=== PATIENT | male | born 1965 | race Caucasian/White ===

== ENCOUNTER 2017-05-08 09:31 | Emergency (ER) | payer SELFPAY ==
--- NOTE | 2017-05-08 10:26 | UC ---
Psychiatric Complaint HPI - HPI Summary HPI Summary: Patient presents with a past medical history of depression. He takes Lamictal 200 mg twice daily. He recently moved here from [facility] [place] [facility] and is going to be able to be cared for and [facility]. He can be seen but the office said it could be up to 10 days. So he currently has 7 pills left and is asking for just enough until he see his new PCP. He denies any suicidal or homicidal thought. - History Of Current Complaint Chief Complaint: UCMedRefill Stated Complaint: MED REFILL Time Seen by Provider: 05/08/17 10:08 ?: No Aggravating Factor(s): Nothing Alleviating Factor(s): Medication Associated Signs And Symptoms: Negative - Risk Factor(s) Completed Suicide Risk Factors: Negative - Allergies/Home Medications Allergies/Adverse Reactions: Allergies Allergy/AdvReac Type Severity Reaction Status Date / Time No Known Allergies Allergy Verified 05/08/17 09:51 Home Medications: Home Medications Acetaminophen [Tylenol 8 Hour Arthritis] 2 tab PO BID 05/08/17 [History Confirmed 05/08/17] Calcium Polycarbophil [Fiber Tabs] 625 mg PO BID 05/08/17 [History Confirmed ] Lubiprostone 24 MCG CAP (NF) [Amitiza (NF)] 24 mcg PO BID 05/08/17 [History Confirmed 05/08/17] Melatonin 1 mg PO BEDTIME 05/08/17 [History Confirmed 05/08/17] lamoTRIgine TAB(*) [Lamictal TAB(*)] 200 mg PO BID 05/08/17 [History Confirmed 05/08/17] PMH/Surg Hx/FS Hx/Imm Hx Previously Healthy: Yes Psychological History: Depression - Surgical History Surgical History: Yes Surgery Procedure, Year, and Place: hernia repair x 2, varicose repair, left knee replacement, gall bladder, gastric ablasion. - Family History Known Family History: Positive: None - Social History Occupation: Employed Full-time Lives: Alone Alcohol Use: Occasionally Substance Use Type: None Smoking Status (MU): Current Every Day Smoker Review of Systems Constitutional: Negative Skin: Negative Eyes: Negative ENT: Negative Respiratory: Negative Cardiovascular: Negative Gastrointestinal: Negative Genitourinary: Negative Motor: Negative Neurovascular: Negative Musculoskeletal: Negative Neurological: Negative Psychological: Negative Is Patient Immunocompromised?: No All Other Systems Reviewed And Are Negative: Yes Physical Exam Triage Information Reviewed: Yes Appearance: Well-Appearing Vital Signs: Initial Vital Signs Temp 97.9 F 05/08/17 09:44 Pulse 61 05/08/17 09:44 Resp 18 05/08/17 09:44 BP 77/33 05/08/17 09:44 Pulse Ox 98 05/08/17 09:44 Vital Signs Reviewed: Yes Eye Exam: Normal ENT Exam: Normal Neck exam: Normal Neck: Positive: 1 Respiratory Exam: Normal Cardiovascular Exam: Normal Abdominal Exam: Normal Musculoskeletal Exam: Normal Neurological Exam: Normal Psychological Exam: Normal Skin Exam: Normal Psych Complaint Course/Dx - Course Course Of Treatment: Patient presents with a past medical history of depression that is well controlled with LAMICTAL 20 mg bid, he has 7 pills left and is going to be seen within 10 days with his mew PCP, to prevent any laspe in treatment I have prescribed 20 tablets. He was otherwise stable and appropriate for out patient treatment. - Differential Dx/Diagnosis Differential Diagnosis/HQI/PQRI: Depression Provider Diagnoses: depression Discharge - Discharge Plan Condition: Stable Disposition: HOME Prescriptions: lamoTRIgine TAB(*) [LaMICtal TAB(*)] 200 mg PO BID #20 tab Patient Education Materials: Depression (DC) Referrals: No Primary Care Phys,NOPCP [Primary Care Provider] -
== END 2017-05-08 10:18 | disposition home or self-care (01) ==
LOC: UCEAST 09:31
DX: F32.9 Major depressive disorder, single episode, unspecified (principal); F17.210 Nicotine dependence, cigarettes, uncomplicated; Z96.652 Presence of left artificial knee joint
CPT/HCPCS: 99202; G0463

== ENCOUNTER 2017-05-20 17:40 | Emergency (ER) | payer SELFPAY ==
[2017-05-20 20:14] VITALS: BP 106/64
--- NOTE | 2017-05-20 21:01 | UC ---
General HPI - HPI Summary HPI Summary: 52 y/o male w/ PMHX of Depression presents to the urgent care requesting medication refill for Lamotrigine 200mg PO BID. Pt reports he just moved here and has a PCP appt on 05/23/2017. However he was seen here at the Urgent care on 05/08/2017 and was only 20tabs PO. He only has 2 pills left and needs medication until he can see his new PCP. Pt denies suicidal or homicidal ideation, depressed mood, HANSEN, dizziness, SOB, chest pain, N/V/D. - History of Current Complaint Chief Complaint: UCMedRefill Stated Complaint: SCRIPT REFILL Time Seen by Provider: 05/20/17 20:38 Onset/Duration: Gradual Onset, Lasting Days, Still Present Timing: Constant Onset Severity: Mild Current Severity: Mild Pain Intensity: 0 Associated Signs & Symptoms: Positive: Other - medication refill - Allergy/Home Medications Allergies/Adverse Reactions: Allergies Allergy/AdvReac Type Severity Reaction Status Date / Time No Known Allergies Allergy Verified 05/20/17 20:05 PMH/Surg Hx/FS Hx/Imm Hx Previously Healthy: Yes Other GI/ History: IBS Psychological History: Depression, Bipolar Disorder - Surgical History Surgical History: Yes Surgery Procedure, Year, and Place: hernia repair x 2, varicose repair, left knee replacement, gall bladder removal, gastric ablation. - Family History Known Family History: Positive: Cardiac Disease, Hypertension, Diabetes - Social History Occupation: Employed Full-time Lives: With Family Alcohol Use: Occasionally Substance Use Type: None Smoking Status (MU): Current Every Day Smoker Amount Used/How Often: 1/2 PPD Review of Systems Constitutional: Negative Skin: Negative Eyes: Negative ENT: Negative Respiratory: Negative Cardiovascular: Negative Gastrointestinal: Negative Genitourinary: Negative Motor: Negative Neurovascular: Negative Musculoskeletal: Negative Neurological: Negative Psychological: Negative Is Patient Immunocompromised?: No All Other Systems Reviewed And Are Negative: Yes Physical Exam Triage Information Reviewed: Yes Vital Signs: Initial Vital Signs Temp 98.1 F 05/20/17 20:08 Pulse 80 05/20/17 20:08 Resp 16 05/20/17 20:08 BP 106/64 05/20/17 20:08 Pulse Ox 97 05/20/17 20:08 - Additional Comments VITAL SIGNS: Reviewed. GENERAL: Patient is a well developed and nourished male who is lying comfortable in the examining table. Patient is not in any acute respiratory distress or agitation. HEAD AND FACE: Normocephalic and atraumatic. EYES: PERRLA, EOMI x 2, No injected conjunctiva. EARS: Hearing grossly intact. Ear canals and tympanic membranes are WNL. MOUTH: Oropharynx within normal limits. NECK: Supple, trachea is midline, no adenopathy, no JVD. CHEST: Symmetric, no tenderness at palpation LUNGS: Clear to auscultation bilaterally. No wheezing or crackles. CVS: RRR,, S1 and S2 present, no murmurs or gallops appreciated. ABDOMEN: Soft, non-tender. No signs of distention. Positive bowel sounds. No rebound no guarding, and no masses palpated. No abdominal bruit or pulsations. EXTREMITIES: FROM in all major joints, no edema, no cyanosis or clubbing. NEURO: Alert and oriented x 3. No acute neurological deficits. Speech is normal. PSYCH: No Depressed, denies any suicidal thoughts or plan. No homicidal thoughts or plan. No signs of psychosis or pressure speech. No tangential speech. SKIN: Dry and warm Course/Dx - Course Course Of Treatment: 52 y/o male w/ PMHX of depression presents to the urgent care requesting medication refill for Lamotrigine 200mg PO BID. Pt reports he just moved here and has a PCP appt on 05/23/2017. However he was seen here at the Urgent care on 05/08/2017 and was only 20tabs PO. He only has 2 pills left and needs medication until he can see his new PCP. Pt denies suicidal or homicidal ideation, depressed mood, HANSEN, dizziness, SOB, chest pain, N/V/D. Hx obtained. PE:WNL. Dr holloway consulted on Pt's request and he reccomended to Rx few days of medication and f/u w/ PCP. Pt Rx Lamicatal 200mg PO and strongly advised w/ his new PCP on 05/23/2017. Pt understood and agreed w/ plan of care. - Differential Dx - Multi-Symptom Differential Diagnoses: Other - bipolar disorder, depression, Provider Diagnoses: 1- Depression Discharge - Discharge Plan Condition: Stable Disposition: HOME Prescriptions: lamoTRIgine TAB(*) [Lamictal TAB(*)] 200 mg PO BID #20 tab Patient Education Materials: Depression (ED) Referrals: [facility] [Outside] - 3 Days Additional Instructions: 1- Please take medication as directed and f/u your appt w/ your PCP on 2017 for further evaluation and treatment. 2-If you feel depressed w/ suicidal or homicidal ideation please go immediately call 911 or go the ER for further management
== END 2017-05-20 21:19 | disposition home or self-care (01) ==
LOC: UCEAST 17:40
DX: F32.9 Major depressive disorder, single episode, unspecified (principal); Z76.0 Encounter for issue of repeat prescription; K58.9 Irritable bowel syndrome, unspecified; Z96.652 Presence of left artificial knee joint; Z90.49 Acquired absence of other specified parts of digestive tract; F17.210 Nicotine dependence, cigarettes, uncomplicated
CPT/HCPCS: 99212; G0463

== ENCOUNTER 2017-07-20 19:30 | Emergency (ER) | payer SELFPAY ==
--- OUTSIDE RECORDS SUMMARY | 2017-07-20 19:37 | XMS REPORT ---
:1965 External Reference #:[id number] Author Organization [facility] Address [address] [address] Phone [phone] Care Team Providers Name Role Phone Waqar Mcintyre III, MD Primary Care Physician Unavailable Problems Date Description Provider Status Onset: 07/16/2017 Acute upper respiratory infection, Eldon Mackenzie M.D. Active unspecified Social History Type Date Description Comments Marital Status Single Lives With Girlfriend Occupation [id number] ETOH Use Occasionally consumes alcohol Smoking Patient is a current smoker, 1.5 ppd; typically 1 ppd in the smokes every day past. Began age 17 Allergies, Adverse Reactions, Alerts Date Description Reaction Status Severity Comments 05/23/2017 NKDA active 05/23/2017 Bee Sting active Medications Medication Date Status Form Strength Qnty SIG Indications Ordering Provider Azithromycin 07/16/ Active Tablets 250mg 6tabs 2 tab J06.9 Eldon 2017 today and Pachikara, then 1tab M.D. daily Proair HFA 07/16/ Active Aerosol 108(90Base 8.5uni 2 puffs ih J06.9 Eldon 2017 ) mcg/Act ts every 4 Pachikara, hours as M.D. needed Amitiza 00/00/ Active Capsules 24mcg 60caps take one Waqar E. 0000 capsule by Miguelina, mouth M.D. twice a day Tylenol 8 Hour 00/00/ Active Tablets ER 650mg one every Unknown Arthritis Pain 0000 6 hours as needed for pains Melatonin 0000/ Active Capsules 10mg 1 tab by Unknown 0000 mouth at bedtime as needed for insomnia Fiber Complete / Active Tablets twice Unknown 0000 daily Lamictal / Active Tablets 200mg 60tabs 1 by mouth Waqar Harrell 0000 twice a bryan Mcintyre--munira Payne for bi-polar Immunizations CPT Code Status Date Vaccine Lot # [id number] Given 04/09/2012 Tetanus And Diptheria (Td) For Adult Use Preservative Free [id number] Given Unknown Zoster (Zostavax) Vital Signs Date Vital Result Comment 07/16/2017 Weight 152.00 lb Heart Rate 98 /min BP Systolic 118 mmHg BP Diastolic 60 mmHg Body Temperature 97.3 F O2 % BldC Oximetry 97 % 05/23/2017 Height 68.1 inches 5'8.10" Weight 153.38 lb Heart Rate 72 /min BP Systolic Sitting 116 mmHg BP Diastolic Sitting 62 mmHg O2 % BldC Oximetry 97 % BMI (Body Mass Index) 23.2 kg/m2 Results Description No Information Procedures Description No Information Encounters Type Date Location Provider CPT E/M Dx Office Visit 05/23/2017 [facility] Waqar Mcintyre, [id number] M67.472 3:40p - Mayela Payne F31.9 K58.1 Plan of Care Future Appointment(s):07/30/2017 11:00 am - Eldon Mackenzie M.D. at [facility] - [address]08/08/2017 4:20 pm - Eldon Mackenzie M.D. at [facility] - [address]/09/2018 - Eldon Mackenzie M.D.J06.9 Acute upper respiratory infection, unspecifiedNew Medication:Azithromycin 250 mgProair HFA 108(90 Base) mcg/ActComments:Will give Zithromax 250 mg 2 tablet today and then 1 tablet daily for four more days .Mucinex twicedaily. Ventolin as neededTylenol as needed. Force fluids and get extra restIf the symptoms doesn 't improve or if it gets worse to call.Follow up:2 weeks/Dr Mcintyre
[2017-07-20 19:47] VITALS: BP 96/56
== END 2017-07-20 21:10 | disposition left against medical advice (07) ==
LOC: UCEAST 19:30
DX: R10.9 Unspecified abdominal pain (principal); Z53.21 Procedure and treatment not carried out due to patient leaving prior to being seen by health care provider

== ENCOUNTER 2017-09-09 17:31 | Emergency (ER) | payer MEDICAID ==
[2017-09-09 17:41] VITALS: BP 100/62
--- NOTE | 2017-09-09 18:05 | ED ---
Skin Complaint - HPI Summary HPI Summary: 52-year-old male with no contributory past medical history presents with 2 months of rash on the medial aspect of his left foot. He has had this in the past was treated with a cream. He has no idea what the diagnosis was or what the cream may have been. He notes that the rash is intensely itchy and performs clear blisters which he sometimes ruptures. They begin as hard spots. It more commonly affects the soles of his foot, and now is more on the side. He has no other complaints. He is on no medication but is a smoker. - History of Current Complaint Chief Complaint: UCSkin Time Seen by Provider: 09/09/17 17:50 Stated Complaint: RASH Hx Obtained From: Patient Pain Intensity: 4 - Allergy/Home Medications Allergies/Adverse Reactions: Allergies Allergy/AdvReac Type Severity Reaction Status Date / Time bee venom protein (honey bee) Allergy Severe Swelling Verified 09/09/17 17:41 Home Medications: Home Medications EPINEPHrine [Epipen] PRN 09/09/17 [History] PMH/Surg Hx/FS Hx/Imm Hx Previously Healthy: Yes Endocrine/Hematology History: Denies: Hx Diabetes, Hx Thyroid Disease Cardiovascular History: Denies: Hx Hypertension Respiratory History: Denies: Hx Chronic Obstructive Pulmonary Disease (COPD) - Surgical History Surgery Procedure, Year, and Place: hernia repair x 2, varicose repair, left knee replacement, gall bladder removal, gastric ablation. Infectious Disease History: No Infectious Disease History: Reports: Hx Shingles Denies: Hx Hepatitis, Hx Human Immunodeficiency Virus (HIV), Traveled Outside the [place] in Last 30 Days - Family History Known Family History: Positive: None, Cardiac Disease, Hypertension, Diabetes - Social History Alcohol Use: None Substance Use Type: Reports: None Hx Tobacco Use: Yes Smoking Status (MU): Current Every Day Smoker Type: Cigarettes Amount Used/How Often: 1/2 PPD Review of Systems Negative: Fever Negative: Arthralgia, Myalgia, Decreased ROM, Edema Positive: Rash. Negative: Bruising All Other Systems Reviewed And Are Negative: Yes Physical Exam Triage Information Reviewed: Yes Vital Signs On Initial Exam: Initial Vitals Temp Pulse Resp BP Pulse Ox 98.2 F 75 16 100/62 100 09/09/17 17:36 09/09/17 17:36 09/09/17 17:36 09/09/17 17:36 09/09/17 17:36 Vital Signs Reviewed: Yes Appearance: Positive: Well-Appearing, No Pain Distress Skin: Positive: Warm, Dry, Other - There is an eruption on the medial surface of the left foot approaching the sole. There is a small firm apparently rising papule more proximally and areas of skin breakdown and almost vesicular looking lesions more distally. There is also areas that look like they have healed and appear as hyperemic or purpuric spots in the skin. All these are maybe 1-2 mm at the largest. Respiratory/Lung Sounds: Positive: Clear to Auscultation Cardiovascular: Positive: RRR Musculoskeletal: Positive: Normal, Strength/ROM Intact Neurological: Positive: Normal, Sensory/Motor Intact Diagnostics - Vital Signs Vital Signs Temp Pulse Resp BP Pulse Ox 09/09/17 17:36 98.2 F 75 16 100/62 100 - Laboratory Lab Statement: Any lab studies that have been ordered have been reviewed, and results considered in the medical decision making process. Course/Dx - Course Course Of Treatment: History of classic eruption of dyshidrotic eczema. I will treat this topically with Lidex cream. Follow-up primary care physician. - Diagnoses Provider Diagnoses: Eczema, dyshidrotic Discharge - Sign-Out/Discharge Documenting (check all that apply): Discharge/Admit/Transfer - Discharge Plan Condition: Good Disposition: HOME Prescriptions: Fluocinonide 0.05% CM (NF) [Lidex 0.05% CREAM (NF)] 1 applic TOPICAL TID PRN #1 tube PRN Reason: foot rash Patient Education Materials: Dyshidrotic Eczema (ED) Referrals: Eldon Mackenzie MD [Primary Care Provider] - Additional Instructions: Keep feet clean and dry. Return if worse, new symptoms or other concerns. Diagnosis is dyshidrotic eczema. - Billing Disposition and Condition Condition: GOOD Disposition: HOME
== END 2017-09-09 18:05 | disposition home or self-care (01) ==
LOC: UCEAST 17:31
DX: L30.1 Dyshidrosis [pompholyx] (principal); Z96.652 Presence of left artificial knee joint; Z91.030 Bee allergy status; F17.210 Nicotine dependence, cigarettes, uncomplicated
CPT/HCPCS: 99212; G0463

== ENCOUNTER 2017-09-18 18:04 | Emergency (ER) | payer MEDICAID ==
--- NOTE | 2017-09-18 18:09 | UC ---
Skin Complaint HPI - HPI Summary HPI Summary: 52 yo male presents with rash on hands for the last 2 days. He tells me that he was recently moving a lot of furniture and supplies into his storage locker - wonders if that caused his rash. Also has spots on his left foot that seem to be getting worse - was seen for this about 10 days ago and told it was eczema and prescribed lidex but is not improving. Pt says these spots will blister every other day and he pops them with his pocket knife. Denies fever/chills - History of Current Complaint Time Seen by Provider: 09/18/17 18:08 Stated Complaint: RASH Hx Obtained From: Patient Onset/Duration: Sudden Onset Timing: Constant - Allergy/Home Medications Allergies/Adverse Reactions: Allergies Allergy/AdvReac Type Severity Reaction Status Date / Time bee venom protein (honey bee) Allergy Severe Swelling Verified 09/18/17 18:16 Review of Systems Constitutional: Negative Skin: Rash Respiratory: Negative Cardiovascular: Negative Neurovascular: Negative Neurological: Negative Psychological: Negative All Other Systems Reviewed And Are Negative: Yes PMH/Surg Hx/FS Hx/Imm Hx - Additional Past Medical History Additional PMH: Bipolar IBS - Surgical History Surgical History: Yes Surgery Procedure, Year, and Place: hernia repair x 2, varicose repair, left knee replacement, gall bladder removal, gastric ablation. - Family History Known Family History: Positive: None, Cardiac Disease, Hypertension, Diabetes - Social History Occupation: Employed Full-time Lives: With Family Alcohol Use: None Substance Use Type: None Smoking Status (MU): Current Every Day Smoker Type: Cigarettes Amount Used/How Often: 1/2 PPD Physical Exam - Summary Physical Exam Summary: GENERAL: NAD. WDWN. No pain distress. SKIN: B/L hands with dry cracked skin. No streaking, bleeding, or drainage. Left medial foot: wart/blister like lesion in clusters with scant yellow drainage. NECK: Supple. Nontender. No lymphadenopathy. CHEST: No accessory muscle use. Breathing comfortably and in no distress. CV: RRR. Without m/r/g. NEURO: Alert. CN II-XII grossly intact. PSYCH: Age appropriate behavior. Triage Information Reviewed: Yes Vital Signs: Vital Signs: Temp Pulse Resp BP Pulse Ox 99.1 F 88 20 102/59 98 09/18/17 18:12 09/18/17 18:12 09/18/17 18:12 09/18/17 18:12 09/18/17 18:12 Course/Dx - Course Course Of Treatment: Eczema hands. Suspect wart vs herpetic asher, but this would be unusual on the foot - therefore I will refer him to dermatology for further evaluation - Diagnoses Provider Diagnoses: Eczema Discharge - Sign-Out/Discharge Documenting (check all that apply): Discharge/Admit/Transfer - Discharge Plan Condition: Stable Disposition: HOME Prescriptions: Triamcinolone 0.1% CREAM(NF) [Kenalog Cream 0.1%(NF)] 1 applic TOPICAL BID #1 tube Patient Education Materials: Eczema (ED) Referrals: Eldon Mackenzie MD [Primary Care Provider] - Fritz Hernandez MD [Medical Doctor] - As Soon As Possible Additional Instructions: If you develop a fever, shortness of breath, chest pain, new or worsening symptoms - please call your PCP or go to the ED. 1) Please call Dermatology at the number below to schedule a follow up appointment regarding the rash on your foot - Billing Disposition and Condition Condition: STABLE Disposition: Home
[2017-09-18 18:16] VITALS: BP 102/59
== END 2017-09-18 18:50 | disposition home or self-care (01) ==
LOC: UCEAST 18:04
DX: L30.9 Dermatitis, unspecified (principal); K58.9 Irritable bowel syndrome, unspecified; F31.9 Bipolar disorder, unspecified; Z91.030 Bee allergy status; Z96.652 Presence of left artificial knee joint; F17.210 Nicotine dependence, cigarettes, uncomplicated; Z82.49 Family history of ischemic heart disease and other diseases of the circulatory system; Z83.3 Family history of diabetes mellitus
CPT/HCPCS: 99212; G0463

== ENCOUNTER 2017-12-10 15:26 | Emergency (ER) | payer MEDICAID, OTHER ==
[2017-12-10] MEDS ORDERED: NS 0.9% 1000 ML* 1,000 ML IV ONE (15:44)
--- NOTE | 2017-12-10 16:04 | UC ---
Laceration HPI - HPI Summary HPI Summary: Patient complains of laceration to left wrist after hitting it with a power drill. Denies loss of sensation or function. Bleeding controlled. No anti- coag. Tetanus status up-to-date. - History Of Current Complaint Chief Complaint: UCLaceration Stated Complaint: DRILL INJURY TO WRIST Time Seen by Provider: 12/10/17 15:44 Hx Obtained From: Patient Laceration Location: Wrist Mechanism Of Injury: Sharp Trauma Severity: Severe Pain Intensity: 8 Pain Scale Used: 0-10 Numeric Aggravating Factors: Nothing - Allergies/Home Medications Allergies/Adverse Reactions: Allergies Allergy/AdvReac Type Severity Reaction Status Date / Time bee venom protein (honey bee) Allergy Severe Swelling Verified 12/10/17 15:36 Home Medications: Home Medications Melatonin 1 mg PO BEDTIME 12/10/17 [History Confirmed 12/10/17] PMH/Surg Hx/FS Hx/Imm Hx Previously Healthy: Yes - Surgical History Surgical History: Yes Surgery Procedure, Year, and Place: hernia repair x 2, varicose repair, left knee replacement, gall bladder removal, gastric ablation. - Family History Known Family History: Positive: None, Cardiac Disease, Hypertension, Diabetes - Social History Alcohol Use: Occasionally Substance Use Type: None Smoking Status (MU): Light Every Day Tobacco Smoker Type: Cigarettes Amount Used/How Often: 1/2 PPD - Immunization History Most Recent Tetanus Shot: states less than 5 years Review of Systems Constitutional: Negative Skin: Other Eyes: Negative ENT: Negative Respiratory: Negative Cardiovascular: Negative Gastrointestinal: Negative Genitourinary: Negative Motor: Negative Neurovascular: Negative Musculoskeletal: Negative Neurological: Negative Psychological: Negative Is Patient Immunocompromised?: No All Other Systems Reviewed And Are Negative: Yes Physical Exam Triage Information Reviewed: Yes Appearance: Well-Appearing Vital Signs: Initial Vital Signs Temp 97.4 F 12/10/17 15:27 Pulse 66 12/10/17 15:27 Resp 16 12/10/17 15:27 BP 86/54 12/10/17 15:27 Pulse Ox 98 12/10/17 15:27 Vital Signs Reviewed: Yes Eye Exam: Normal Neck exam: Normal Respiratory Exam: Normal Cardiovascular Exam: Normal Abdominal Exam: Normal Musculoskeletal Exam: Normal Neurological Exam: Normal Psychological Exam: Normal Skin Exam: Other Laceration Repair - Laceration Repair 1 Procedure Summary: left volar wrist Description: Linear Laceration Size After Repair: Length (cm) - 3cmx 0.25cm Modified For Repair: No Cleansing Completed Via Routine Prep: Yes Irrigation With Pressure Irrigation Device: Yes Closure Material: Skin Adhesive, SteriStrips Closure Method: Single Layer Laceration Course/Dx - Course/Dx Course Of Treatment: Patient complains of laceration to left wrist after hitting it with a power drill. Denies loss of sensation or function. Bleeding controlled. No anti-coag. Tetanus status up-to-date. Patient initial blood pressure 88/56. Patient was given 1 L of fluids and ambulated after. Patient denies any dizziness or lightheadedness with ambulation. Post fluids-SBP 103/ 59. Patient has no history of hypertension, likely a vaso-vagal reaction to wound. Wound closed with Dermabond and Steri-Strips. Keflex 500 mg started here in . Rx for same. - Differential Dx - Laceration/Wound Provider Diagnoses: laceration Discharge - Sign-Out/Discharge Documenting (check all that apply): Patient Departure All imaging exams completed and their final reports reviewed: No Studies - Discharge Plan Condition: Stable Disposition: HOME Prescriptions: Cephalexin CAP* [Keflex CAP*] 500 mg PO TID 5 Days #15 cap Patient Education Materials: Laceration (ED), Skin Adhesive Care (ED) Referrals: Waqar Mcintyre MD [Primary Care Provider] - Additional Instructions: Leave steristrips until they fall off. Keep wound protected while healing. Take antibiotics as directed. Return for any new or worsening symptoms. - Billing Disposition and Condition Condition: STABLE Disposition: Home - Attestation Statements Provider Attestation: Per institutional requirements, I have reviewed the chart, however, I was not consulted specifically or made aware of this patient by the midlevel provider. I did not personally evaluate, interact with , or disposition this patient.
[2017-12-10] MEDS ORDERED: Cephalexin CAP* 500 MG PO ONE ×3 (16:45→17:04)
[2017-12-10 16:56] VITALS: BP 103/59
== END 2017-12-10 17:20 | disposition home or self-care (01) ==
LOC: UCEAST 15:26
DX: S61.512A Laceration without foreign body of left wrist, initial encounter (principal); W29.8XXA Contact with other powered hand tools and household machinery, initial encounter; Y93.9 Activity, unspecified; Y92.9 Unspecified place or not applicable; Z91.030 Bee allergy status; Z96.652 Presence of left artificial knee joint; F17.210 Nicotine dependence, cigarettes, uncomplicated
CPT/HCPCS: 12002; 96360; 99212; A9270-GY; G0463

== ENCOUNTER 2017-12-17 17:14 | Emergency (ER) | payer OTHER, MEDICAID ==
[2017-12-17 17:23] VITALS: BP 118/76
--- NOTE | 2017-12-17 17:31 | UC ---
HPI Wound/Suture Re-check - HPI Summary HPI Summary: This pt is a 52 y/o male presenting to [facility] c/o wound recheck on left wrist s/p injury on 12/08/17. Pt reports he sustained a laceration to left wrist after hitting it with a power drill on 12/08. He came to Urgent Care on 12/10 and had a laceration repair with steri strips and skin adhesives (Dermabond). Pt was also placed on Keflex and has one more dose left. Today he presents with drainage, pain and redness on left wrist. He states he has had yellow drainage from his wound. Denies red streaks, fever, chills, loss of sensation, loss of left motor function. states pt has been rinsing his wound with peroxide since 2 days ago, as well as placing triple antibiotic on wound. - History Of Current Complaint Stated Complaint: WOUND RECHECK Hx Obtained From: Patient Onset/Duration: Lasting Days, Still Present Severity: Moderate Pain Intensity: 4 Pain Scale Used: 0-10 Numeric Procedure Type: laceration repair with steri strips and skin adhesives - Allergies/Home Medications Allergies/Adverse Reactions: Allergies Allergy/AdvReac Type Severity Reaction Status Date / Time bee venom protein (honey bee) Allergy Severe Swelling Verified 12/17/17 17:23 PMH/Surg Hx/FS Hx/Imm Hx Other Endocrine History: DENIES: diabetes Other Cardiovascular History: DENIES: HTN Psychological History: Bipolar Disorder - Surgical History Surgical History: Yes Surgery Procedure, Year, and Place: hernia repair x 2, varicose repair, left knee replacement, gall bladder removal, gastric ablation. - Family History Known Family History: Positive: Cardiac Disease, Hypertension, Diabetes - Social History Alcohol Use: Occasionally Substance Use Type: Prescribed Smoking Status (MU): Light Every Day Tobacco Smoker Type: Cigarettes Amount Used/How Often: 1/2 PPD - Immunization History Most Recent Tetanus Shot: states less than 5 years Review of Systems Constitutional: Negative Skin: Other - redness on left wrist, drainage from left wrist Eyes: Negative ENT: Negative Respiratory: Negative Cardiovascular: Negative Gastrointestinal: Negative Genitourinary: Negative Motor: Negative Neurovascular: Negative Musculoskeletal: Negative Neurological: Negative Psychological: Negative All Other Systems Reviewed And Are Negative: Yes Physical Exam - Summary Physical Exam Summary: General: well-appearing, no pain distress Skin: warm, dry. LUE: 2 cm partial thickness laceration on left wrist with surrounding erythema. No drainage. No streaking. Left wrist with full ROM and normal strength. Head: normal Eyes: EOMI, SHERIN ENT: normal Neck: supple, nontender Respiratory: CTA, breath sounds present Cardiovascular: RRR Abdomen: soft, nontender Bowel: present Musculoskeletal: normal, strength/ROM intact Neurological: normal, sensory/motor intact, A&O x3 Psychological: affect/mood appropriate Triage Information Reviewed: Yes Vital Signs: Initial Vital Signs Temp 98.6 F 12/17/17 17:20 Pulse 66 12/17/17 17:20 Resp 12 12/17/17 17:20 BP 118/76 12/17/17 17:20 Pulse Ox 100 12/17/17 17:20 Vital Signs Reviewed: Yes Course/Dx - Course Course Of Treatment: Medications reviewed. WRIST FROM AND FULL STRENGTH. THE WOUND HAS SOME ERYTHEMA. NO DRAINAGE ON MY EXAM. THE PATIENT REPORTS A CLEAR YELLOW DRAINAGE. NO SREAKING. THE WOUND HAS BEEN CLEANED WITH HYDROGEN PEROXIDE RECENTLY AND TRIPLE ANTIBIOTIC OINTMENT USED. I CHANGED THE ABX TO CLINDAMYCIN AND RECOMMENDED NO MORE HYDROGEN PEROXIDE AND TO SWITCH TOPICAL ABX TO MUPIROCIN. F/U WITH ORTHOPEDICS. - Differential Dx - Laceration/Wound Provider Diagnoses: LEFT WRIST LACERATION Discharge - Sign-Out/Discharge Documenting (check all that apply): Patient Departure - Discharge All imaging exams completed and their final reports reviewed: No Studies - Discharge Plan Condition: Stable Disposition: HOME Prescriptions: Clindamycin Cap(NF) [Clindamycin Cap 300 mg Cap(NF)] 300 mg PO Q6H #40 cap Mupirocin 1 applic TOPICAL BID #22 gm Patient Education Materials: Laceration (ED) Referrals: Joce Sterling MD [Medical Doctor] - Waqar Mcintyre MD [Primary Care Provider] - Additional Instructions: FOLLOW UP WITH ORTHOPEDICS. GET RECHECKED FOR ANY WORSENING OF YOUR CONDITION OR QUESTIONS OR CONCERNS. - Billing Disposition and Condition Condition: STABLE Disposition: Home - Attestation Statements Document Initiated by Scribe: Yes Documenting Scribe: Hannah Garcia Provider For Whom Scribe is Documenting (Include Credential): Oscar Breaux MD Scribe Attestation: Hannah Hernandez, scribed for Oscar Breaux MD on 12/17/17 at 1756. Scribe Documentation Reviewed: Yes Provider Attestation: The documentation as recorded by the scribe, Hannha Garcia accurately reflects the service I personally performed and the decisions made by me, Oscar Breaux MD
== END 2017-12-17 17:53 | disposition home or self-care (01) ==
LOC: UCEAST 17:14
DX: S61.512D Laceration without foreign body of left wrist, subsequent encounter (principal); W29.8XXD Contact with other powered hand tools and household machinery, subsequent encounter; Z91.030 Bee allergy status; Z96.652 Presence of left artificial knee joint; F17.210 Nicotine dependence, cigarettes, uncomplicated
CPT/HCPCS: 99212; G0463

== ENCOUNTER 2017-12-25 18:57 | Emergency (ER) | payer OTHER, MEDICAID ==
[2017-12-25 19:06] VITALS: BP 101/62
--- NOTE | 2017-12-25 19:19 | UC ---
Skin Complaint HPI - HPI Summary HPI Summary: ABRASION RIGHT 2ND AND 3NR FINGER X 1 DAY CONCERN ABOUT INFECTION NO FEVER, NO CHILLS, - History of Current Complaint Chief Complaint: UCLaceration Time Seen by Provider: 12/25/17 19:10 Stated Complaint: FINGER LACERATION Hx Obtained From: Patient Onset/Duration: Sudden Onset, Lasting Days - 1, Still Present Timing: Constant Onset Severity: Mild Current Severity: Mild Pain Intensity: 5 Location: Hand (Right) - 2ND AND 3RD FINGER Character: Swelling, Redness, Painful Aggravating Factor(s): Touch Alleviating Factor(s): Nothing Associated Signs & Symptoms: Positive: Tenderness. Negative: Fever, Chills - Allergy/Home Medications Allergies/Adverse Reactions: Allergies Allergy/AdvReac Type Severity Reaction Status Date / Time bee venom protein (honey bee) Allergy Severe Swelling Verified 12/25/17 19:06 Review of Systems Constitutional: Negative Eyes: Negative ENT: Negative Respiratory: Negative Cardiovascular: Negative Is Patient Immunocompromised?: No All Other Systems Reviewed And Are Negative: Yes PMH/Surg Hx/FS Hx/Imm Hx Psychological History: Bipolar Disorder - Surgical History Surgical History: Yes Surgery Procedure, Year, and Place: hernia repair x 2, varicose repair, left knee replacement, gall bladder removal, gastric ablation. - Family History Known Family History: Positive: Cardiac Disease, Hypertension, Diabetes - Social History Alcohol Use: Occasionally Substance Use Type: Prescribed Smoking Status (MU): Light Every Day Tobacco Smoker Type: Cigarettes Amount Used/How Often: 1/2 PPD - Immunization History Most Recent Tetanus Shot: states less than 5 years Physical Exam Triage Information Reviewed: Yes Appearance: Well-Appearing, No Pain Distress, Well-Nourished Vital Signs: Initial Vital Signs Temp 97.9 F 12/25/17 19:02 Pulse 74 12/25/17 19:02 Resp 18 12/25/17 19:02 BP 101/62 12/25/17 19:02 Pulse Ox 100 12/25/17 19:02 Vital Signs Reviewed: Yes Eyes: Positive: Conjunctiva Clear ENT: Positive: Normal ENT inspection, Hearing grossly normal, Pharynx normal Neck exam: Normal Neck: Positive: Supple, Nontender Respiratory: Positive: Chest non-tender, Lungs clear, Normal breath sounds Cardiovascular: Positive: RRR, No Murmur, Pulses Normal Skin: Positive: Other - RIGHT HAND 2ND AND 3RD FINGER: + ABRASION , MILD SWELLING, MILD ERYTHEMA Course/Dx - Diagnoses Provider Diagnoses: ABRASION FINGER Discharge - Sign-Out/Discharge Documenting (check all that apply): Patient Departure All imaging exams completed and their final reports reviewed: No Studies - Discharge Plan Condition: Stable Disposition: HOME Prescriptions: Amoxicillin/Clavulanate TAB* [Augmentin TAB 875*] 875 mg PO BID #14 tab Patient Education Materials: Abrasion (ED) Referrals: Waqar Mcintyre MD [Primary Care Provider] - If Needed - Billing Disposition and Condition Condition: STABLE Disposition: Home
== END 2017-12-25 19:30 | disposition home or self-care (01) ==
LOC: UCEAST 18:57
DX: S60.410A Abrasion of right index finger, initial encounter (principal); S60.412A Abrasion of right middle finger, initial encounter; X58.XXXA Exposure to other specified factors, initial encounter; Y93.9 Activity, unspecified; Y92.9 Unspecified place or not applicable; Z91.030 Bee allergy status; F17.210 Nicotine dependence, cigarettes, uncomplicated
CPT/HCPCS: 99212; G0463

== ENCOUNTER 2018-01-03 16:35 | Emergency (ER) | payer OTHER ==
[2018-01-03 17:18] VITALS: BP 102/59
--- NOTE | 2018-01-03 18:37 | UC ---
Head Injury HPI - HPI Summary HPI Summary: The patient is a 52-year-old male that comes here for evaluation of a facial injury. Injury occurred mid afternoon at work today. Patient was tightening a ratchet strap when a coworker move the strap. The strap was under a lot of tension and the hook part of the strap hit him in the right cheek. He has pain over his right zygoma. He did not have any bleeding. He has not had any relief with ibuprofen. He declines any ice or other analgesics here. He has no headache nausea vomiting chest pain or shortness of breath. Denies any neck pain - History Of Current Complaint Chief Complaint: UCTrauma Stated Complaint: FACE INJURY Time Seen by Provider: 01/03/18 18:23 Hx Obtained From: Patient Onset/Duration: Sudden Onset, Lasting Hours Severity Currently: Severe Severity Initially: Severe Pain Intensity: 9 Pain Scale Used: 0-10 Numeric Character: Sharp, Dull, Throbbing Aggravating Factor(s): Nothing Alleviating Factor(s): Nothing Associated Signs And Symptoms: Negative: LOC (Time In Secs./Mins/Hrs), LOC Duration Unknown, Confusion, Memory Loss, Seizure, Epistaxis, Dental Malocclusion, Neck Pain, Nausea, Vomiting Head: 1 - pain/tenderness - Allergies/Home Medications Allergies/Adverse Reactions: Allergies Allergy/AdvReac Type Severity Reaction Status Date / Time bee venom protein (honey bee) Allergy Severe Swelling Verified 01/03/18 17:18 Home Medications: Home Medications Ibuprofen TAB* [Advil TAB*] 600 mg PO ONCE PRN 01/03/18 [History Confirmed 01/03] PMH/Surg Hx/FS Hx/Imm Hx Previously Healthy: Yes Psychological History: Bipolar Disorder - Surgical History Surgical History: Yes Surgery Procedure, Year, and Place: hernia repair x 2, varicose repair, left knee replacement, gall bladder removal, gastric ablation. - Family History Known Family History: Positive: Cardiac Disease, Hypertension, Diabetes - Social History Alcohol Use: Occasionally Substance Use Type: None Smoking Status (MU): Current Every Day Smoker Type: Cigarettes Amount Used/How Often: 1/2 PPD - Immunization History Most Recent Tetanus Shot: states less than 5 years Review of Systems Constitutional: Negative Skin: Negative Eyes: Negative ENT: Negative Respiratory: Negative Cardiovascular: Negative Gastrointestinal: Negative Genitourinary: Negative Motor: Negative Neurovascular: Negative Musculoskeletal: Negative Neurological: Negative Psychological: Negative Is Patient Immunocompromised?: No All Other Systems Reviewed And Are Negative: Yes Physical Exam Triage Information Reviewed: Yes Appearance: Well-Appearing, No Pain Distress, Well-Nourished, Thin Vital Signs: Initial Vital Signs Temp 98.7 F 01/03/18 17:14 Pulse 68 01/03/18 17:14 Resp 16 01/03/18 17:14 BP 102/59 01/03/18 17:14 Pulse Ox 98 01/03/18 17:14 Vital Signs Reviewed: Yes Eyes: Positive: Conjunctiva Clear ENT: Positive: Hearing grossly normal, Uvula midline. Negative: Nasal congestion, Nasal drainage, Tonsillar swelling, Tonsillar exudate, Hoarse voice , Sinus tenderness Dental: Negative: Dental Fracture @ Neck: Positive: Supple, Nontender, No Lymphadenopathy Respiratory: Positive: Lungs clear, Normal breath sounds, No respiratory distress, No accessory muscle use Cardiovascular: Positive: RRR, No Murmur Musculoskeletal: Positive: ROM Intact, No Edema Neurological: Positive: Alert Psychological Exam: Normal Skin Exam: Normal Diagnostics - Radiology No standard instances Xray Interpretation: No Acute Changes - No acute posttraumatic findings. Specifically, no zygomatic arch fractur Radiology Interpretation Completed By: Radiologist Head Injury Course/Dx - Differential Dx/Diagnosis Provider Diagnoses: RIGHT FACIAL CONTUSION Discharge - Sign-Out/Discharge Documenting (check all that apply): Patient Departure All imaging exams completed and their final reports reviewed: Yes - Discharge Plan Condition: Stable Disposition: HOME Patient Education Materials: Contusion in Adults (ED) Referrals: Rodney Montenegro MD [Medical Doctor] - 4 Days Additional Instructions: ICE MOTRIN SEE DR MONTENEGRO FOR REEVALUATION ESPECIALLY IF NOT BETTER IN 4 DAYS - Billing Disposition and Condition Condition: STABLE Disposition: Home
--- NOTE | 2018-01-03 19:42 | RAD ---
EXAM: CT Maxillofacial Without Intravenous Contrast CLINICAL HISTORY: 52 years old, male; Injury or trauma; Injury Pt was hit in right zygomatic arch with metal part of a ratchet strap today; Initial encounter; Blunt trauma (contusions or hematomas); Cheek bone; Injury date: 01/03/18; Additional info: Trauma right zygoma TECHNIQUE: Axial computed tomography images of the face without intravenous contrast. All CT scans at this facility use at least one of these dose optimization techniques: automated exposure control; mA and/or kV adjustment per patient size (includes targeted exams where dose is matched to clinical indication); or iterative reconstruction. Coronal and sagittal reformatted images were created and reviewed. COMPARISON: No relevant prior studies available. FINDINGS: Bones/joints: No acute fracture. Soft tissues: Unremarkable. Orbits: Unremarkable. Sinuses: Chronic left maxillary sinus disease. No air-fluid levels. Other findings: Disc space narrowing at the C5-6 level noted incidentally. IMPRESSION: 1. No acute posttraumatic findings. Specifically, no zygomatic arch fracture.
== END 2018-01-03 19:00 | disposition home or self-care (01) ==
LOC: UCEAST 16:35
DX: S00.83XA Contusion of other part of head, initial encounter (principal); W22.8XXA Striking against or struck by other objects, initial encounter; Y93.89 Activity, other specified; Y92.9 Unspecified place or not applicable; Y99.0 Civilian activity done for income or pay; Z96.652 Presence of left artificial knee joint; Z91.030 Bee allergy status; F17.210 Nicotine dependence, cigarettes, uncomplicated
CPT/HCPCS: 70486; 99211; G0463

== ENCOUNTER 2018-02-22 10:20 | Emergency (ER) | payer OTHER, MEDICAID ==
--- OUTSIDE RECORDS SUMMARY | 2018-02-22 10:25 | XMS REPORT ---
:1965 External Reference #:[id number] Author Organization [employer] Address [address] [place] [address] [place] [address] Phone [phone] Care Team Providers Name Role Phone Waqar Mcintyre III, MD Primary Care Physician Unavailable Payers Type Date Identification Numbers Payment Provider Subscriber Health Maintenance Policy Number: [facility] Health Ins Gumaro Miles [facility] (O) [id number] Ppo/Epo PayID: [id number] [address] [place] [address] Medigap Part B Policy Number: [id number] Medicaid Gumaro Miles Group Name: 1 1 [address] PayID: [id number] [place] [address] Problems Date Description Provider Status Onset: 02/01/2018 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 Active Onset: 07/16/2017 Acute upper respiratory infection, Eldon Mackenzie M.D. 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 Began age 17 Allergies, Adverse Reactions, Alerts Date Description Reaction Status Severity Comments 05/23/2017 NKDA active 05/23/2017 Bee Sting active Medications Medication Date Status Form Strength Qnty SIG Indications Ordering Provider Suprep Bowel 01/21/ Active Solution 17.5-3.13 1unit take Peter T. Prep Kit 2018 -1.6GM/17 s according to Buzz 7ML your MD physician's instructions the day before your procedure. split the dose as directed. Epipen 2-Boo 12/05/ Active Solution 0.3mg/0.3 2unit use as Waqar E. 2017 Auto-Injec ML s directed betty Mcintyre M.D. Amitiza / Active Capsules 24mcg 60cap take one Waqar E. 0000 s capsule by Miguelina, mouth twice a M.D. day Melatonin / Active Capsules 10mg 1 tab by Unknown 0000 mouth at bedtime as needed for insomnia Fiber Complete / Active Tablets twice daily Unknown 0000 Lamictal / Active Tablets 200mg 60tab 1 by mouth Waqar E. 0000 s twice a Miguelina, day--taken M.D. for bi-polar Azithromycin 07/16/ Hx Tablets 250mg 6tabs 2 tab today J06.9 [place] 2018 - and then 1tab Pachikara 01/21/ daily , M.D. 2018 Proair HFA 07/16/ Hx Aerosol 108(90Bas 8.5un 2 puffs ih J06.9 [place] 2017 - e) its every 4 hours Pachikara 01/21/ mcg/Act as needed , M.D. 2018 Tylenol 8 Hour / Hx Tablets ER 650mg one every 6 Unknown Arthritis Pain 0000 - hours as 01/21/ needed for 2018 pains Immunizations CPT Code Status Date Vaccine Lot # [id number] Given 01/21/2018 Pneumonia Vaccine [id number] Given 01/21/2018 Influenza Virus Vaccine, Quadrivalent, Split, [id number] Preservative Free 92796 Given 04/09/2012 Tetanus And Diptheria (Td) For Adult Use Preservative Free 96260 Given Unknown Zoster (Zostavax) Vital Signs Date Vital Result Comment 02/01/2018 Height 68.1 inches 5'8.10" Weight 164.25 lb Heart Rate 78 /min Respiratory Rate 18 /min Pain Level 5 BMI (Body Mass Index) 24.9 kg/m2 01/21/2018 Height 68.1 inches 5'8.10" Weight 160.50 lb Heart Rate 78 /min BP Systolic Sitting 118 mmHg BP Diastolic Sitting 68 mmHg O2 % BldC Oximetry 98 % BMI (Body Mass Index) 24.3 kg/m2 07/16/2017 Weight 152.00 lb Heart Rate 98 [...] Location Provider CPT E/M Dx Office Visit 01/21/2018 [facility] Waqar Mcintyre, 65651 M25.562 9:00a - Mayela Payne Z23 Z12.11 Office Visit 12/03/2017 4:20p [facility] [place] [address] B35.3 Office Visit 10/04/2017 3:30p [facility] [address] B35.3 Carey B35.2 Office Visit 07/16/2017 2:40p [facility] Eldon Mackenzie, 37825 J06.9 Medicine - Pretty Cutler M.D. Office Visit 05/23/2017 3:40p [facility] Waqar Mcintyre, 96033 M67.472 Medicine - Mayela Payne F31.9 K58.1 Plan of Care Future Appointment(s):02/11/2018 8:45 am - Vicente Gerber MD at [facility] Pvcbcshbmvlspdbk76/26/2018 - Kirstin Randolph M.D.M25.562 Pain in left kneeNew Therapy:Physical TherapyFollow up:Follow up: 4 fkjgyX81.652 Presence of left artificial knee viooiN39.023A Instability of internal left knee prosthesis, init alsnqsJ40.462 Effusion, left knee
[2018-02-22 10:32] VITALS: BP 110/89
--- NOTE | 2018-02-22 10:50 | UC ---
Respiratory Complaint HPI - HPI Summary HPI Summary: 2 days of cough, congestion, runny nose. Chest feels tight. Patient is a smoker and states he gets bronchitis frequently. Denies fever, nausea/ vomiting. No sore throat or ear pain. - History of Current Complaint Chief Complaint: UCRespiratory Stated Complaint: COUGH, CONGESTION Time Seen by Provider: 02/22/18 10:36 Hx Obtained From: Patient Onset/Duration: Gradual Onset, Lasting Days, Still Present Timing: Constant Severity Initially: Moderate Severity Currently: Moderate Pain Intensity: 3 Pain Scale Used: 0-10 Numeric Character: Cough: Nonproductive Aggravating Factors: Nothing Alleviating Factors: Nothing Associated Signs And Symptoms: Positive: Wheezing, URI, Nasal Congestion. Negative: Fever, Chills - Allergies/Home Medications Allergies/Adverse Reactions: Allergies Allergy/AdvReac Type Severity Reaction Status Date / Time bee venom protein (honey bee) Allergy Severe Swelling Verified 02/22/18 10:32 PMH/Surg Hx/FS Hx/Imm Hx Previously Healthy: Yes - Surgical History Surgical History: Yes Surgery Procedure, Year, and Place: hernia repair x 2, varicose repair, left knee replacement, gall bladder removal, gastric ablation. - Family History Known Family History: Positive: Cardiac Disease, Hypertension, Diabetes - Social History Alcohol Use: Occasionally Substance Use Type: None Smoking Status (MU): Current Every Day Smoker Type: Cigarettes Amount Used/How Often: 1/2 PPD - Immunization History Most Recent Tetanus Shot: states less than 5 years Review of Systems All Other Systems Reviewed And Are Negative: Yes Constitutional: Positive: Negative ENT: Positive: Nasal Discharge Respiratory: Positive: Cough Cardiovascular: Positive: Negative Gastrointestinal: Positive: Negative Neurological: Positive: Negative Physical Exam Triage Information Reviewed: Yes Appearance: Well-Appearing, No Pain Distress, Well-Nourished Vital Signs: Initial Vital Signs Temp 98.8 F 02/22/18 10:27 Pulse 84 02/22/18 10:27 Resp 18 02/22/18 10:27 BP 110/89 02/22/18 10:27 Pulse Ox 96 02/22/18 10:27 Vital Signs Reviewed: Yes Eyes: Positive: Conjunctiva Clear ENT: Positive: Hearing grossly normal, Pharynx normal, TMs normal Neck: Positive: Supple, Nontender, No Lymphadenopathy Respiratory: Positive: No respiratory distress, No accessory muscle use, Decreased breath sounds. Negative: Wheezing Cardiovascular Exam: Normal Abdomen Description: Positive: Soft Musculoskeletal: Positive: No Edema Neurological: Positive: Alert Psychological: Positive: Age Appropriate Behavior Skin: Negative: Rashes UC Diagnostic Evaluation - Laboratory O2 Sat by Pulse Oximetry: 96 Respiratory Course/Dx - Differential Dx/Diagnosis Provider Diagnoses: ACUTE URI Discharge - Sign-Out/Discharge Documenting (check all that apply): Patient Departure All imaging exams completed and their final reports reviewed: No Studies - Discharge Plan Condition: Stable Disposition: HOME Prescriptions: Albuterol HFA INHALER* [Ventolin HFA Inhaler*] 2 puff INH Q4H PRN #1 mdi PRN Reason: Shortness Of Breath Azithromycin 500 mg PO DAILY #5 tab predniSONE TAB* [Deltasone 20 MG TAB*] 40 mg PO DAILY #10 tab Patient Education Materials: Upper Respiratory Infection (ED) Forms: *Work Release Referrals: Waqar Mcintyre MD [Primary Care Provider] - If Needed Additional Instructions: YOUR SYMPTOMS MAY BE VIRALLY MEDIATED BUT GIVEN YOUR SMOKING HISTORY WE WILL COVER YOU WITH ANTIBIOTICS. IF YOU START THE MEDICINE BE SURE TO TAKE IT FOR THE FULL COURSE. REST, HYDRATE, OTC MEDS NEEDED. WILL ALSO TREAT WITH PREDNISONE AND ALBUTEROL TO HELP WITH AIRWAY INFLAMMATION. SEEK FOLLOW-UP WITH YOUR PCP IF YOU ARE NOT IMPROVING OVER THE NEXT 1-2 WEEKS. - Billing Disposition and Condition Condition: STABLE Disposition: Home
== END 2018-02-22 10:57 | disposition home or self-care (01) ==
LOC: UCEAST 10:20
DX: J06.9 Acute upper respiratory infection, unspecified (principal); F17.210 Nicotine dependence, cigarettes, uncomplicated; Z91.030 Bee allergy status
CPT/HCPCS: 99212; G0463

== ENCOUNTER 2018-03-24 15:23 | Emergency (ER) | payer OTHER, MEDICAID ==
--- OUTSIDE RECORDS SUMMARY | 2018-03-24 15:29 | XMS REPORT | Continuity of Care Document ---
:1965 External Reference #:[id number] Author Name Alexsandra Smith Care Team Providers Name Role Phone Waqar Mcintyre III, MD Primary Care Physician Unavailable Payers Type Date Identification Numbers Payment Provider Subscriber Policy Number: [id number] [facility] Health Ins Ppo/Epo Gumaro Miles PayID: [id number] [address] [place] [address] Policy Number: [id number] Medicaid Gumaro Miles Group Name: 1 1 [address] PayID: [id number] [place] [address] Advance Directives Description No Information Available Problems Date Description Provider Status Onset: 02/01/2018 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 Active Onset: 07/16/2017 Acute upper respiratory infection, Eldon Mackenzie M.D. Active unspecified Family History Date Family Member(s) Problem(s) Comments Father due to Lung Cancer () - age 49 Mother Hypertension Social History Type Date Description Comments Sex Unknown Marital Status Single Lives With Girlfriend Occupation [id number] ETOH Use Occasionally consumes alcohol Tobacco Use Start: Unknown Patient is a current 1.5 ppd; typically 1 ppd smoker, smokes every day in the past. Began age 17 Smoking Status Reviewed: 03/05/18 Patient is a current 1.5 ppd; typically 1 ppd smoker, smokes every day in the past. Began age 17 Allergies, Adverse Reactions, Alerts Date Description Reaction Status Severity Comments 05/23/2017 NKDA Active 05/23/2017 Bee Sting Active Medications Medication Date Status Form Strength Qnty SIG Indications Ordering Provider Suprep Bowel 10/15/ Active Solution 17.5-3.13 1unit take Vicente Ponce Prep Kit 2018 -1.6GM/17 s according to FABIOLA Gerber your MD physician's instructions the day before [...] Aerosol 108(90Bas 8.5un 2 puffs ih J06.9 Eldon 2017 - e) its every 4 hours Pachikara 01/21/ mcg/Act as needed , M.D. 2018 Tylenol 8 Hour / Hx Tablets ER 650mg one every 6 Unknown Arthritis Pain 0000 - hours as 01/21/ needed for 2018 pains Immunizations CPT Code Status Date Vaccine Lot # [id number] Given 01/21/2018 Pneumonia Vaccine [id number] Given 01/21/2018 Influenza Virus Vaccine, Quadrivalent, Split, [id number] Preservative Free [id number] Given 04/09/2012 Tetanus And Diptheria (Td) For Adult Use Preservative Free [id number] Given Unknown Zoster (Zostavax) Vital Signs Date Vital Result Comment 03/05/2018 3:38pm Height 68.1 inches 5'8.10" Weight 163.00 lb Heart Rate 74 /min BP Systolic Sitting 92 mmHg BP Diastolic Sitting 60 mmHg Body Temperature 98.3 F O2 % BldC Oximetry 93 % BMI (Body Mass Index) 24.7 kg/m2 02/01/2018 2:11pm Height 68.1 inches 5'8.10" Weight 164.25 lb Heart Rate 78 /min Respiratory Rate 18 /min Pain Level 5 BMI (Body Mass Index) 24.9 kg/m2 01/21/2018 8:54am Height 68.1 inches 5'8.10" Weight 160.50 lb Heart Rate 78 /min BP Systolic Sitting 118 mmHg BP Diastolic Sitting 68 mmHg O2 % BldC Oximetry 98 % BMI (Body Mass Index) 24.3 kg/m2 07/16/2017 2:40pm Weight 152.00 lb Heart Rate 98 /min BP Systolic 118 mmHg BP Diastolic 60 mmHg Body Temperature 97.3 F O2 % BldC Oximetry 97 % 05/23/2017 3:50pm Height 68.1 inches 5'8.10" Weight 153.38 lb Heart Rate 72 /min BP Systolic Sitting 116 mmHg BP Diastolic Sitting 62 mmHg O2 % BldC Oximetry 97 % BMI (Body Mass Index) 23.2 kg/m2 Results Description No Information Available Procedures Description No Information Available Encounters Type Date Location Provider Dx Diagnosis Office Visit 02/01/2018 Orthopedic Kirstin Randolph, M25.562 Pain in left knee 2:00p [facility] Z96.652 Presence of left artificial knee joint 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 knee [place] Z23 Encounter for immunization Z12.11 Encounter for screening for malignant neoplasm of colon Office Visit 12/03/2017 4:20p [facility] Fritz Hernandez MD B35.3 Tinea pedis Office Visit 10/04/2017 3:30p [facility] AT Fritz Hernandez MD B35.3 Tinea pedis [place] B35.2 Tinea manuum Office Visit 07/16/2017 [facility] Internal [place] J06.9 Acute upper 2:40p Jarrod Mackenzie M.D. respiratory [address] infection, unspecified Office Visit 05/23/2017 [facility] Internal Waqar Harrell M67.472 Ganglion, left 3:40p Jarrod Mcintyre M.D. ankle and foot [place] F31.9 Bipolar disorder, unspecified K58.1 Irritable bowel syndrome with constipation Plan of Treatment 03/05/2018 - Waqar Mcintyre M.D.J20.9 Acute bronchitis, unspecifiedComments: Ongoing cough, wheezing sx. Likely viral; continue Albuterol inhaler 4 times a day and as needed. Smoking cessation again pciwqulP25.8 Other nonspecific abnormal finding of lung fieldComments:[facility] chest [facility] with ? small bilateral nodules. Repeat scan advised in 1 year per pt. Will review records when available. No other lung findings reported
[2018-03-24 15:30] VITALS: BP 104/54
--- NOTE | 2018-03-24 15:52 | UC ---
Shoulder Pain HPI - HPI Summary HPI Summary: Patient has had right anterior shoulder pain for the past 6+ months. No discrete injury or trauma. States it is becoming progressively worse recently. He is having trouble sleeping due to the discomfort. Has some limitation in his range of motion. - History of Current Complaint Chief Complaint: UCUpperExtremity Stated Complaint: R SHOULDER PAIN Time Seen by Provider: 03/24/18 15:39 Hx Obtained From: Patient Onset/Duration: Gradual Onset, Still Present Timing: Constant Severity Initially: Mild Severity Currently: Moderate Location Of Pain: Is Discrete @ - RIGHT ANTERIOR SHOULDER Pain Intensity: 8 Pain Scale Used: 0-10 Numeric Character: Sharp, Aching Aggravating Factor(s): Movement, Internal Rotation Alleviating Factor(s): Rest Associated Signs And Symptoms: Positive: Negative Related History: Dominant Hand Right - Allergies/Home Medications Allergies/Adverse Reactions: Allergies Allergy/AdvReac Type Severity Reaction Status Date / Time bee venom protein (honey bee) Allergy Severe Swelling Verified 03/24/18 15:30 PMH/Surg Hx/FS Hx/Imm Hx Other GI/ History: CHRONIC CONSTIPATION Psychological History: Depression - Surgical History Surgical History: Yes Surgery Procedure, Year, and Place: hernia repair x 2, varicose repair, left knee replacement, gall bladder removal, gastric ablation. - Family History Known Family History: Positive: Cardiac Disease, Hypertension, Diabetes - Social History Alcohol Use: Occasionally Substance Use Type: None Smoking Status (MU): Light Every Day Tobacco Smoker Type: Cigarettes Amount Used/How Often: 1/2 PPD - Immunization History Most Recent Tetanus Shot: states less than 5 years Review of Systems All Other Systems Reviewed And Are Negative: Yes Constitutional: Positive: Negative Skin: Positive: Negative Respiratory: Positive: Negative Cardiovascular: Positive: Negative Gastrointestinal: Positive: Negative Musculoskeletal: Positive: Arthralgia, Decreased ROM Physical Exam Triage Information Reviewed: Yes Appearance: Well-Appearing, No Pain Distress, Well-Nourished Vital Signs: Initial Vital Signs Temp 98.7 F 03/24/18 15:27 Pulse 71 03/24/18 15:27 Resp 18 03/24/18 15:27 BP 104/54 03/24/18 15:27 Pulse Ox 100 03/24/18 15:27 Vital Signs Reviewed: Yes Eyes: Positive: Conjunctiva Clear ENT: Positive: Hearing grossly normal Neck: Positive: Supple Respiratory: Positive: No respiratory distress, No accessory muscle use Cardiovascular: Positive: Pulses Normal Abdomen Description: Positive: Soft Musculoskeletal: Positive: ROM Intact - SLIGHTLY LIMITED RIGHT SHOULDER INTERNAL ROTATION, No Edema, Other: - TTP RIGHT ANTERIOR SHOULDER. POSITIVE EMPTY CAN, POSITIVE SPEEDS. NEG CROSS ARM, NEG REID. Neurological: Positive: Alert Psychological: Positive: Age Appropriate Behavior Skin: Negative: Rashes Diagnostics - Radiology RIGHT SHOULDER XRAY Radiology Interpretation Completed By: Radiologist Summary of Radiographic Findings: mild osteoarthritis of the right AC joint Shoulder Course/Dx - Course Assessment/Plan: PATIENT WITH ANTERIOR RIGHT SHOULDER PAIN. POSSIBLE RIGHT BICEPS TENDINOPATHY. X-RAY SHOWS MILD OSTEOARTHRITIS OF THE RIGHT AC JOINT BUT NO OTHER ACUTE PATHOLOGY. HAVE PROVIDED A SLING FOR COMFORT. ADVISED PT. FOLLOW-UP WITH ORTHOPEDICS. - Differential Dx/Diagnosis Provider Diagnosis: Pain in right shoulder Discharge - Sign-Out/Discharge Documenting (check all that apply): Patient Departure All imaging exams completed and their final reports reviewed: Yes - Discharge Plan Condition: Stable Disposition: HOME Patient Education Materials: Tendinitis (ED), Shoulder Pain (ED) Referrals: Kirill Carrillo MD [Medical Doctor] - 2 Weeks Waqar Mcintyre MD [Primary Care Provider] - If Needed Additional Instructions: SHOULDER X-RAY TODAY SHOWS MILD OSTEOARTHRITIS OF THE RIGHT AC JOINT BUT NO OTHER ACUTE INJURY. WEAR THE SLING NEEDED FOR COMFORT. CALL ORTHOPEDICS TOMORROW MORNING FOR A FOLLOW-UP APPOINTMENT. YOU MAY BENEFIT FROM AN MRI. PHYSICAL THERAPY REFERRAL ALSO PROVIDED FOR YOU TO USE IF DESIRED. REST. OTC IBUPROFEN NEEDED FOR DISCOMFORT. - Billing Disposition and Condition Condition: STABLE Disposition: Home
== END 2018-03-24 16:45 | disposition home or self-care (01) ==
LOC: UCEAST 15:23
DX: M25.511 Pain in right shoulder (principal); F17.210 Nicotine dependence, cigarettes, uncomplicated
CPT/HCPCS: 99213; G0463

== ENCOUNTER 2018-06-17 12:10 | Emergency (ER) | payer BC, OTHER ==
[2018-06-17 14:09] VITALS: BP 100/58
--- NOTE | 2018-06-17 14:16 | UC ---
Shoulder Pain HPI - HPI Summary HPI Summary: Patient was walking in the parking lot at work when he slipped on ice this morning and fell onto his left hip - History of Current Complaint Chief Complaint: UCUpperExtremity Stated Complaint: WC - RIGHT SIDE PAIN Time Seen by Provider: 06/17/18 14:15 Pain Intensity: 7 - Allergies/Home Medications Allergies/Adverse Reactions: Allergies Allergy/AdvReac Type Severity Reaction Status Date / Time bee venom protein (honey bee) Allergy Severe Swelling Verified 06/17/18 14:04 PMH/Surg Hx/FS Hx/Imm Hx - Surgical History Surgical History: Yes Surgery Procedure, Year, and Place: hernia repair x 2, varicose repair, left knee replacement, gall bladder removal, gastric ablation. - Family History Known Family History: Positive: Cardiac Disease, Hypertension, Diabetes - Social History Alcohol Use: Occasionally Substance Use Type: None Smoking Status (MU): Light Every Day Tobacco Smoker Type: Cigarettes Amount Used/How Often: 1/2 PPD Have You Smoked in the Last Year: Yes - Immunization History Most Recent Tetanus Shot: states less than 5 years Physical Exam Vital Signs: Initial Vital Signs Temp 97.7 F 06/17/18 14:05 Pulse 57 06/17/18 14:05 Resp 16 06/17/18 14:05 BP 100/58 06/17/18 14:05 Pulse Ox 100 06/17/18 14:05 Shoulder Course/Dx - Course Course Of Treatment: Comfortable here, ambulated to x-ray without difficulty. - Differential Dx/Diagnosis Differential Diagnosis/HQI/PQRI: Contusion Provider Diagnosis: Contusion of hip, right Discharge - Sign-Out/Discharge Documenting (check all that apply): Patient Departure All imaging exams completed and their final reports reviewed: Yes - Discharge Plan Condition: Good Disposition: HOME Patient Education Materials: Hip Contusion (ED) Referrals: Waqar Mcintyre MD [Primary Care Provider] - Additional Instructions: Apply ice to the sore areas, avoid movements that cause pain. Definite follow- up with the orthopedist if no improvement in 3 or 4 days. He may take Tylenol every 4 hours and Motrin every 6 or 8 hours for pain. - Billing Disposition and Condition Condition: GOOD Disposition: Home
[2018-06-17] MEDS ORDERED: Acetaminophen TAB* 325 MG PO ONE (14:20)
--- NOTE | 2018-06-17 15:01 | UC ---
Hip/Pelvis Pain - HPI Summary HPI Summary: Patient slipped on the ice and fell this morning in his parking lot at work, injuring his right hip. He had minor right shoulder soreness because he thinks he grabbed onto something but he did not fall on his right shoulder. Denies any neck pain and did not hit his head. - History Of Current Complaint Chief Complaint: UCUpperExtremity Stated Complaint: WC - RIGHT SIDE PAIN Time Seen by Provider: 06/17/18 14:15 Hx Obtained From: Patient Onset/Duration: Sudden Onset Severity Initially: Mild Severity Currently: None Pain Intensity: 7 Location: Diffuse Character Of Pain: Aching Aggravating Factor(s): Movement Alleviating Factor(s): Rest Associated Signs And Symptoms: Positive: Negative - Patient denies hitting his head, denies any neck pain. States his right shoulder was mildly sore but is no longer painful from where he caught himself from falling. - Allergies/Home Medications Allergies/Adverse Reactions: Allergies Allergy/AdvReac Type Severity Reaction Status Date / Time bee venom protein (honey bee) Allergy Severe Swelling Verified 06/17/18 14:04 PMH/Surg Hx/FS Hx/Imm Hx Previously Healthy: Yes - Surgical History Surgical History: Yes Surgery Procedure, Year, and Place: hernia repair x 2, varicose repair, left knee replacement, gall bladder removal, gastric ablation. - Family History Known Family History: Positive: Cardiac Disease, Hypertension, Diabetes - Social History Occupation: Employed Full-time Lives: With Family Alcohol Use: Occasionally Substance Use Type: None Smoking Status (MU): Light Every Day Tobacco Smoker Type: Cigarettes Amount Used/How Often: 1/2 PPD Have You Smoked in the Last Year: Yes - Immunization History Most Recent Tetanus Shot: states less than 5 years Review of Systems All Other Systems Reviewed And Are Negative: Yes Constitutional: Positive: Negative Skin: Positive: Negative Eyes: Positive: Negative ENT: Positive: Negative Respiratory: Positive: Negative Cardiovascular: Positive: Negative Gastrointestinal: Positive: Negative Genitourinary: Positive: Negative Motor: Positive: Other - Mild right hip pain with palpation but not with movement. Neurovascular: Positive: Negative - Denies any numbness or tingling to extremities. Musculoskeletal: Positive: Negative Neurological: Positive: Negative Psychological: Positive: Negative Is Patient Immunocompromised?: No Physical Exam Triage Information Reviewed: Yes Appearance: Well-Appearing, No Pain Distress, Well-Nourished Vital Signs: Initial Vital Signs Temp 97.7 F 06/17/18 14:05 Pulse 57 06/17/18 14:05 Resp 16 06/17/18 14:05 BP 100/58 06/17/18 14:05 Pulse Ox 100 06/17/18 14:05 Vital Signs Reviewed: Yes Eye Exam: Normal Neck exam: Normal Neck: Positive: Supple, Nontender, No Lymphadenopathy - C-spine nontender Respiratory: Positive: Chest non-tender, Lungs clear, Normal breath sounds, No respiratory distress, No accessory muscle use Cardiovascular Exam: Normal Abdominal Exam: Normal Bowel Sounds: Positive: Present Musculoskeletal Exam: Normal Musculoskeletal: Positive: Strength Intact, ROM Intact - Denies pain with range of motion however has mild right hip pain on firm palpation Neurological Exam: Normal Neurological: Positive: Alert, Muscle Tone Normal Psychological Exam: Normal Skin Exam: Normal Hip Injury Course/Dx - Course Course Of Treatment: Comfortable here, ambulated to x-ray without difficulty. X -ray right hip and pelvis negative - Differential Dx/Diagnosis Provider Diagnosis: Contusion of hip, right Discharge - Sign-Out/Discharge Documenting (check all that apply): Patient Departure All imaging exams completed and their final reports reviewed: Yes - Discharge Plan Condition: Good Disposition: HOME Patient Education Materials: Hip Contusion (ED) Referrals: Waqar Mcintyre MD [Primary Care Provider] - Additional Instructions: Apply ice to the sore areas, avoid movements that cause pain. Definite follow- up with the orthopedist if no improvement in 3 or 4 days. He may take Tylenol every 4 hours and Motrin every 6 or 8 hours for pain. - Billing Disposition and Condition Condition: GOOD Disposition: Home - Attestation Statements Provider Attestation: Per institutional requirements, I have reviewed the chart, however, I was not consulted specifically or made aware of this patient by the midlevel provider. I did not personally evaluate, interact with , or disposition this patient.
== END 2018-06-17 15:04 | disposition home or self-care (01) ==
LOC: UCCORT 12:10
DX: S70.01XA Contusion of right hip, initial encounter (principal); R29.898 Other symptoms and signs involving the musculoskeletal system; F17.210 Nicotine dependence, cigarettes, uncomplicated; Z91.030 Bee allergy status; W00.9XXA Unspecified fall due to ice and snow, initial encounter; Y92.481 Parking lot as the place of occurrence of the external cause; Y99.0 Civilian activity done for income or pay
CPT/HCPCS: 99212; A9270-GY; G0463

== ENCOUNTER 2018-08-30 18:40 | Emergency (ER) | payer BC, MEDICAID, OTHER ==
--- OUTSIDE RECORDS SUMMARY | 2018-08-30 18:46 | XMS REPORT | Continuity of Care Document ---
:1965 External Reference #:[id number] Author Name Erin Johnson Care Team Providers Name Role Phone Waqar Mcintyre III, MD Primary Care Physician Unavailable Payers Date Identification Numbers Payment Provider Subscriber Expires: 2018 Policy Number: [id number] [facility] Health Ins Ppo/Epo David Miles PayID: [id number] [address] [place] [address] Effective: 2018 Policy Number: [id number] [employer] David Miles PayID: [id number] [address] [address] [place] [address] Policy Number: [id number] Medicaid David Miles Group Name: 1 1 [address] PayID: [id number] [place] [address] Problems Active Problems Provider Date Prosthetic joint dislocation Kirstin Randolph M.D. Onset: 02/01/2018 Arthroplasty of knee Kirstin Randolph M.D. Onset: 02/01/2018 Acute upper respiratory infection, Eldon Mackenzie M.D. Onset: 07/16/2017 unspecified Family History Date Family Member(s) Observation Comments Father due to Lung Cancer () - age 49 Mother Hypertension Mother Hypercholesterolemia First Sister Hypercholesterolemia Social History Type Date Description Comments Sex Unknown Marital Status Single Lives With Girlfriend Occupation [employer]-33[employer] ETOH Use Occasionally consumes alcohol Tobacco Use Start: Unknown Patient is a current 5 per day as of 08/21/18. smoker, smokes every day 1.5 ppd; typically 1 ppd in the past. Began age 17 Smoking Status Reviewed: 08/21/18 Patient is a current 5 per day as of . smoker, smokes every day 1.5 ppd; typically 1 ppd in the past. Began age 17 Allergies, Adverse Reactions, Alerts Active Allergies Reaction Severity Comments Date NKDA 05/23/2017 Bee Sting 05/23/2017 Medications Active Medications SIG Qnty Indications Ordering Date Provider Suprep Bowel Prep take according to 1unkenny Ponce 01/21/2018 Kit your physician's MD Buzz instructions the day 17.5-3.13-1.6GM/177 before your ML Solution procedure. split the dose as directed. Epipen 2-Boo use as directed 2units Waqar Harrell 12/05/2017 Kerry Mcintyre 0.3mg/0.3ML Solution Auto-Inject Amitiza take one capsule by 60caps Waqar Harrell 24mcg mouth twice a day Kerry Mcintyre Capsules Melatonin 1 tab by mouth at Unknown 10mg bedtime as needed Capsules for insomnia Fiber Complete twice daily Unknown Tablets Lamictal 1 by mouth twice a 60tabs Waqar Harrell 200mg day--taken for Kerry Mcintyre Tablets bi-polar Pravastatin Sodium 1/2 by mouth every Unknown day 10mg Tablets History Medications Azithromycin 2 tab today 6tabs J06.9 Eldon Mackenzie, 07/16/2017 - 250mg and then 1tab M.D. 01/21/2018 Tablets daily Proair HFA 2 puffs ih 8.5units J06.9 Eldon Mackenzie, 07/16/2017 - every 4 hours M.D. 01/21/2018 108(90Base) mcg/Act as needed Aerosol Tylenol 8 Hour one every 6 Unknown - Arthritis Pain hours as 01/21/2018 650mg needed for Tablets ER pains Immunizations CPT Code Status Date Vaccine Lot # [id number] Given 01/21/2018 Pneumonia Vaccine [id number] Given 01/21/2018 Influenza Virus Vaccine, Quadrivalent, Split, [id number] Preservative Free [id number] Given 08/21/2016 Tdap - Tetanus/Diptheria/Acellular Pertussis 79393 Given Unknown Zoster (Zostavax) Vital Signs Date Vital Result Comment 08/21/2018 11:15am Height 68.1 inches 5'8.10" Weight 156.00 lb Heart Rate 73 /min BP Systolic Sitting 106 mmHg BP Diastolic Sitting 64 mmHg O2 % BldC Oximetry 99 % BMI (Body Mass Index) 23.6 kg/m2 05/10/2018 10:33am Height 68.1 inches 5'8.10" Weight 162.00 lb Heart Rate 67 /min BP Systolic 107 mmHg BP Diastolic 62 mmHg Body Temperature 97.0 F O2 % BldC Oximetry 97 % BMI (Body Mass Index) 24.6 kg/m2 03/05/2018 3:38pm Height 68.1 inches 5'8.10" Weight [...] BMI (Body Mass Index) 23.2 kg/m2 Results Test Date Facility Test Result H/L Range Note Laboratory test 05/27/2018 [facility] Surgical SEE RESULT 1 , [address] [place] [address] [phone] 1 [id number] 2 SEE RESULT BELOW Name: DAVID MILES : [address]: Vicente Gerber MD Acct: [id number] Unit: [id number] AGE: 53 Location: ENDOCEC Re05/27/18 SEX: M Status: DEP REF SPEC: [id number] JULIA: 05/27/18-[address] [facility] [address]: Vicente Gerber MD REQ: [id number] RECD: 05/27/18-1552 STATUS: BHAVANA PATRICIO DR: Waqar Mcintyre III, MD _ ORDERED: LEVEL 4/5 COMMENTS: [id number] FINAL DIAGNOSIS 1. Colon, descending, biopsy: -- Tubular adenoma. -- No high grade dysplasia or malignancy. 2. Colon, mid sigmoid, biopsy: -- Tubular adenoma. -- No high grade dysplasia or malignancy. 3. Colon, distal sigmoid, biopsy: -- Tubular adenoma. -- No high grade dysplasia or malignancy. 4. Colon, distal sigmoid, biopsy: -- Tubular adenoma. -- No high grade dysplasia or malignancy. 5. Colon, rectosigmoid, biopsy: -- Tubular adenoma. -- No high grade dysplasia or malignancy. CLINICAL HISTORY Screening/Surveillance for malignancy in asymptomatic patient; family history ; usual bowel habit - every day - twice a day - no blood CONTINUED ON NEXT PAGE DEPARTMENT OF PATHOLOGY, [address] [place] [address] Monty Pradhan M.D. Director KARLY # [id number] RUN DATE: 05/28/18 [facility] LAB LIVE PAGE 2 Patient: DAVID MILES [id number] (Continued) POST-OPERATIVE DIAGNOSIS (Continued) POST-OPERATIVE DIAGNOSIS Colonoscopy: to cecum with ease; loopy; good prep; conclusions: 5 polyps GROSS DESCRIPTION 1. The specimen is received in formalin labeled, Descending Colon Polyp, and consists of a 1.1 by up to 0.8 x 0.2 cm douglas-pink polypoid soft tissue fragment which is inked, trisected and submitted entirely in one cassette. 2. The specimen is received in formalin labeled, Mid Sigmoid Colon Polyp, and consists of two douglas-pink polypoid soft tissue fragments averaging 0.4 x 0.3 x 0.1 cm which are submitted entirely in one cassette. 3. The specimen is received in formalin labeled, Distal Sigmoid Colon Polyp , and consists of a 0.4 x 0.3 x 0.1 cm aggregate of douglas-pink irregular soft tissue fragments which is submitted entirely in one cassette. 4. The specimen is received in formalin labeled, Biopsy Distal Sigmoid Colon Polyp, and consists of a 0.6 x 0.5 by up to 0.2 cm aggregate of douglas-pink irregular to polypoid soft tissue fragments which is submitted entirely in one cassette. 5. The specimen is received in formalin labeled, Rectosigmoid Colon Polyp, and consists of a 0.6 x 0.4 x 0.3 cm douglas-pink irregular to polypoid soft tissue fragment which is submitted entirely in one cassette. Signed by and Reported on: Karla Parker MD 05/28/18 0956 END OF REPORT DEPARTMENT OF PATHOLOGY, [address] [place] [address] Monty Pradhan M.D. Director [facility] # [id number] Procedures Date Code Description Status 05/27/2018 08899 Colonoscopy Flexible Remove Tumor/Polyp/Lesion Snare Completed Technique 05/27/2018 62554037 Colonoscopy Completed Encounters Type Date Location Provider Dx Diagnosis Office Visit 05/10/2018 Cyndi Harrell K58.1 Irritable bowel 10:20a Jarrod Mcintyre M.D. syndrome with [place] constipation Office Visit 03/05/2018 Cyndi Harrell J20.9 Acute bronchitis, 3:20p Jarrod Mcintyre M.D. unspecified [place] R91.8 Other nonspecific abnormal finding of lung field Office Visit 02/01/2018 2:00p [facility] Kirstin Randolph, M25.562 Pain in left Of C.M.A. M.D. 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 knee [place] Z23 Encounter for immunization Z12.11 Encounter for screening for malignant neoplasm of colon Office Visit 12/03/2017 4:20p [facility] Fritz Hernandez MD B35.3 Tinea pedis Office Visit 10/04/2017 3:30p [facility] AT Fritz Hernandez MD B35.3 Tinea pedis [place] B35.2 Tinea manuum Office Visit 07/16/2017 [facility] Internal Eldon J06.9 Acute upper 2:40p Medicine - Kerry Mackenzie respiratory [address] infection, unspecified Office Visit 05/23/2017 [facility] Internal Waqar Harrell M67.472 Ganglion, left 3:40p [place] - Kerry Mcintyre ankle and foot [place] F31.9 Bipolar disorder, unspecified K58.1 Irritable bowel syndrome with constipation Plan of Treatment 08/21/2018 - Waqar Mcintyre M.D.R51 HeadacheComments:New headache sx starting soon after pt began Pravastatin Rx. No focal findings on exam. Hold pravastatin and observe; alternative Rx advised if headache sx resolve off the Rx.
[2018-08-30 19:02] VITALS: BP 104/53
--- NOTE | 2018-08-30 19:11 | UC ---
UC General HPI - HPI Summary HPI Summary: This is a 53-year-old male who takes Lamictal 200 mg twice a day. [facility] and he has been waiting for his prescription for the past 10 days which he called in 10 days ago and has not received. He took his last dose this afternoon. - History of Current Complaint Chief Complaint: UCMedRefill Stated Complaint: MEDICATION REFILL Time Seen by Provider: 08/30/18 19:05 Hx Obtained From: Patient Onset/Duration: Other - Patient took his last dose of medication this afternoon. Current Severity: None Pain Intensity: 0 - Allergy/Home Medications Allergies/Adverse Reactions: Allergies Allergy/AdvReac Type Severity Reaction Status Date / Time bee venom protein (honey bee) Allergy Severe Swelling Verified 08/30/18 19:02 Home Medications: Home Medications Pravastatin (NF) [Pravachol (NF)] 10 mg PO DAILY 08/30/18 [History Confirmed ] PMH/Surg Hx/FS Hx/Imm Hx Previously Healthy: Yes Psychological History: Depression - Surgical History Surgical History: Yes Surgery Procedure, Year, and Place: hernia repair x 2, varicose repair, left knee replacement, gall bladder removal, gastric ablation. - Family History Known Family History: Positive: Cardiac Disease, Hypertension, Diabetes - Social History Alcohol Use: Occasionally Substance Use Type: None Smoking Status (MU): Light Every Day Tobacco Smoker Type: Cigarettes Amount Used/How Often: 1/2 PPD Have You Smoked in the Last Year: Yes - Immunization History Most Recent Tetanus Shot: states less than 5 years Review of Systems All Other Systems Reviewed And Are Negative: Yes Is Patient Immunocompromised?: No Physical Exam Triage Information Reviewed: Yes Appearance: Well-Appearing, No Pain Distress, Well-Nourished Vital Signs: Initial Vital Signs Temp 97.9 F 08/30/18 18:58 Pulse 68 08/30/18 18:58 Resp 16 08/30/18 18:58 BP 104/53 08/30/18 18:58 Pulse Ox 99 08/30/18 18:58 Vital Signs Reviewed: Yes Eye Exam: Normal Musculoskeletal Exam: Normal Neurological Exam: Normal Psychological Exam: Normal Course/Dx - Course Course Of Treatment: This 53-year-old male ran out of his Lamictal this evening and is still [facility] He's going to call them on Sunday to see where that is located however I did give him a 10 day supply to hold him over. - Diagnoses Provider Diagnosis: Medication refill Discharge - Sign-Out/Discharge Documenting (check all that apply): Patient Departure All imaging exams completed and their final reports reviewed: No Studies - Discharge Plan Condition: Good Disposition: HOME Prescriptions: lamoTRIgine TAB(*) [LaMICtal TAB(*)] 200 mg PO BID 10 Days #20 tab Referrals: Waqar Mcintyre MD [Primary Care Provider] - Additional Instructions: Follow-up with the [place] pharmacy on Sunday if you do not receive your prescription refill. - Billing Disposition and Condition Condition: GOOD Disposition: Home
== END 2018-08-30 19:20 | disposition home or self-care (01) ==
LOC: UCEAST 18:40
DX: Z76.0 Encounter for issue of repeat prescription (principal); F17.210 Nicotine dependence, cigarettes, uncomplicated; Z91.030 Bee allergy status
CPT/HCPCS: 99212; G0463

== ENCOUNTER 2018-10-01 20:43 | Emergency (ER) | payer BC ==
[2018-10-01 20:57] VITALS: BP 106/58
--- NOTE | 2018-10-01 21:17 | UC ---
Abdominal Pain Male HPI - HPI Summary HPI Summary: 53-year-old male comes in with a chief complaint of pain and swelling in the right inguinal area. Started about 2 weeks ago. The swelling is getting larger and worse. Pain is worse when he is sitting down or he crosses his legs. He's had a history of inguinal hernias in the past and he feels like he has another inguinal hernia. He's been able to eat and drink. Normal bowels normal urine. No fevers or chills. - History of Current Complaint Chief Complaint: UCGeneralIllness Stated Complaint: POSS HERNIA Time Seen by Provider: 10/01/18 20:56 Pain Intensity: 6 - Allergies/Home Medications Allergies/Adverse Reactions: Allergies Allergy/AdvReac Type Severity Reaction Status Date / Time bee venom protein (honey bee) Allergy Severe Swelling Verified 10/01/18 20:57 PMH/Surg Hx/FS Hx/Imm Hx Previously Healthy: Yes Endocrine History: Dyslipidemia Respiratory History: Asthma - Surgical History Surgical History: Yes Surgery Procedure, Year, and Place: hernia repair x 2, varicose repair, left knee replacement, gall bladder removal, gastric ablation. - Family History Known Family History: Positive: Cardiac Disease, Hypertension, Diabetes - Social History Alcohol Use: Occasionally Substance Use Type: None Smoking Status (MU): Light Every Day Tobacco Smoker Type: Cigarettes Amount Used/How Often: 1/2 PPD Have You Smoked in the Last Year: Yes - Immunization History Most Recent Tetanus Shot: states less than 5 years Review of Systems All Other Systems Reviewed And Are Negative: Yes Constitutional: Positive: Negative Skin: Positive: Negative Eyes: Positive: Negative ENT: Positive: Negative Respiratory: Positive: Negative Cardiovascular: Positive: Negative Gastrointestinal: Positive: Other - SEE HPI Motor: Positive: Negative Neurovascular: Positive: Negative Musculoskeletal: Positive: Negative Neurological: Positive: Negative Psychological: Positive: Negative Is Patient Immunocompromised?: No Physical Exam Triage Information Reviewed: Yes Appearance: Well-Appearing, No Pain Distress, Well-Nourished Vital Signs: Initial Vital Signs Temp 98.7 F 10/01/18 20:53 Pulse 64 10/01/18 20:53 Resp 12 10/01/18 20:53 BP 106/58 10/01/18 20:53 Pulse Ox 96 10/01/18 20:53 Vital Signs Reviewed: Yes Eye Exam: Normal Eyes: Positive: Conjunctiva Clear Neck: Positive: Supple Respiratory: Positive: No respiratory distress Abdomen Description: Positive: Nontender, Soft Male Genital Exam: Positive: Inguinal Tenderness - RIGHT INGUINAL SOFT MASS MILDLY TENDER TO PALPATION Musculoskeletal: Positive: Strength Intact, ROM Intact Neurological Exam: Normal Neurological: Positive: Alert, Muscle Tone Normal Psychological Exam: Normal Psychological: Positive: Age Appropriate Behavior Skin Exam: Normal Abd Pain Male Course/Dx - Course Course Of Treatment: The patient's examination is most consistent with a nonincarcerated right direct inguinal hernia. Patient has no digestive symptoms he's eating and drinking well have normal bowels normal urination therefore at this time not concerned about incarceration. Ultrasound is not available at this time in clinic. I'm giving the patient the surgeon to follow-up with surgery. I also recommended getting an ultrasound which can be done here when ultrasound available or potentially through his primary care physician or surgery. I let him know that if anything got worse with worse pain and vomiting anything to indicate incarceration he is to go to the emergency department. - Differential Dx/Clinical Impression Provider Diagnosis: Mass of right inguinal region Discharge - Sign-Out/Discharge Documenting (check all that apply): Patient Departure All imaging exams completed and their final reports reviewed: No Studies - Discharge Plan Condition: Stable Disposition: HOME Patient Education Materials: Inguinal Hernia (ED) Referrals: Waqar Mcintyre MD [Primary Care Provider] - Cyrus Harris MD [Medical Doctor] - Additional Instructions: FOLLOW UP WITH DR HARRIS, SURGERY. I RECOMMEND GETTING AN ULTRASOUND OF THE AREA OF SWELLING AND PAIN. THIS CAN BE DONE HERE WHEN ULTRASOUND IS AVAILABLE; CALL AHEAD TO MAKE SURE ULTRASOUND IS AVAILABLE. YOUR PRIMARY CARE DOCTOR MAY ALSO BE ABLE TO ARRANGE AN ULTRASOUND. GO TO THE EMERGENCY DEPARTMENT IF YOUR CONDITION WORSENS; PAIN, FEVER, VOMITING , YOU FEEL ILL OR ANY QUESTIONS OR CONCERNS. - Billing Disposition and Condition Condition: STABLE Disposition: Home
== END 2018-10-01 21:41 | disposition home or self-care (01) ==
LOC: UCEAST 20:43
DX: R19.03 Right lower quadrant abdominal swelling, mass and lump (principal); E78.5 Hyperlipidemia, unspecified; F17.210 Nicotine dependence, cigarettes, uncomplicated
CPT/HCPCS: 99211; G0463

== ENCOUNTER 2019-01-13 11:57 | Emergency (ER) | payer BC ==
[2019-01-13 12:31] VITALS: BP 97/60
--- NOTE | 2019-01-13 12:33 | UC ---
Back Pain HPI - HPI Summary HPI Summary: 53 yo male presents with low back pain. He tells me that last night he was going down his friend's porch steps and missed a step - grabbed onto the nearby railing and his lower back twisted. Had immediate pain. Has been ambulatory since. He took tylenol and ibuprofen last night with little relief. Trouble sleeping due to pain. Today back feels tight and stiff. He tells me that he has a hx of an L3 "bulging disc". Currently denies radiation of pain, numbness, tingling, dysuria, saddle anesthesia, or loss of bowel/bladder control. - History of Current Complaint Chief Complaint: UCBackPain Stated Complaint: BACK INJURY Time Seen by Provider: 01/13/19 12:32 Hx Obtained From: Patient Onset/Duration: Sudden Onset Timing: Constant Severity Initially: Severe Severity Currently: Severe Pain Intensity: 9 Pain Scale Used: 0-10 Numeric - Allergies/Home Medications Allergies/Adverse Reactions: Allergies Allergy/AdvReac Type Severity Reaction Status Date / Time bee venom protein (honey bee) Allergy Severe Swelling Verified 01/13/19 12:32 PMH/Surg Hx/FS Hx/Imm Hx - Additional Past Medical History Additional PMH: IBS Endocrine History: Dyslipidemia Respiratory History: Asthma - Surgical History Surgical History: Yes Surgery Procedure, Year, and Place: hernia repair x 2, varicose repair, left knee replacement, gall bladder removal, gastric ablation. - Family History Known Family History: Positive: Cardiac Disease, Hypertension, Diabetes - Social History Lives: With Family Alcohol Use: Occasionally Substance Use Type: None Smoking Status (MU): Heavy Every Day Tobacco Smoker Type: Cigarettes Amount Used/How Often: 1/2 PPD Have You Smoked in the Last Year: Yes - Immunization History Most Recent Tetanus Shot: states less than 5 years Review of Systems All Other Systems Reviewed And Are Negative: No Constitutional: Positive: Negative Skin: Positive: Negative Respiratory: Positive: Negative Cardiovascular: Positive: Negative Neurovascular: Positive: Negative Musculoskeletal: Positive: Other: - Back pain Neurological: Positive: Negative Psychological: Positive: Negative Physical Exam - Summary Physical Exam Summary: GENERAL: NAD. WDWN. No pain distress. SKIN: No rashes, sores, lesions, or open wounds. NECK: Supple. FROM. Nontender. No lymphadenopathy. CHEST: CTAB. No r/r/w. No accessory muscle use. Breathing comfortably and in no distress. CV: RRR. Pulses intact. Cap refill <2seconds MSK: TTP over lumbar paraspinal muscles. Pain with flexion and extension of spine. Positive SLR b/l for low back pain without radiation. Strength 5/5 B/L LEs including dorsiflexion and plantar flexion. FROM B/L LEs. No edema. NEURO: Alert. Sensations intact B/L LEs L3-S1. Reflexes intact PSYCH: Age appropriate behavior. 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 Degenerative disc disease at L1 -L2, L2-L3, L3-L4 and L4-L5. Back Pain Course/Dx - Course Course Of Treatment: XR as above. Discussed results with pt. Suspect muscle strain. Advised to continue tylenol and avoid NSAIDs given gastric ablation. Will rx for flexeril. Advised to rest and apply heat to his back. F/u with PCP within 1 week if symptoms have not improved - Differential Dx/Diagnosis Provider Diagnosis: Back strain Discharge ED - Sign-Out/Discharge Documenting (check all that apply): Patient Departure All imaging exams completed and their final reports reviewed: Yes - Discharge Plan Condition: Stable Disposition: HOME Prescriptions: Cyclobenzaprine TAB* [Flexeril 10 MG TAB*] 10 mg PO BID PRN #10 tab PRN Reason: Pain - Mild Patient Education Materials: Muscle Strain (DC) Forms: *Work Release Referrals: Waqar Mcintyre MD [Primary Care Provider] - 1 Week Additional Instructions: If you develop a fever, shortness of breath, chest pain, new or worsening symptoms - please call your PCP or go to the ED immediately. 1) Rest and apply heat intermittently to your back to reduce pain and spasm 2) Continue taking tylenol as directed 3) Do not drive while taking the FLEXERIL 4) I recommend that you follow up with your Primary Doctor within 1 week if your symptoms have not improved - Billing Disposition and Condition Condition: STABLE Disposition: Home
== END 2019-01-13 13:22 | disposition home or self-care (01) ==
LOC: UCEAST 11:57
DX: S39.012A Strain of muscle, fascia and tendon of lower back, initial encounter (principal); M43.17 Spondylolisthesis, lumbosacral region; M47.896 Other spondylosis, lumbar region; M51.36 Other intervertebral disc degeneration, lumbar region; F17.210 Nicotine dependence, cigarettes, uncomplicated; Z91.030 Bee allergy status; Z96.652 Presence of left artificial knee joint; X50.1XXA Overexertion from prolonged static or awkward postures, initial encounter; Y92.9 Unspecified place or not applicable
CPT/HCPCS: 72110; 99212; G0463

== ENCOUNTER 2019-04-10 21:02 | Emergency (ER) | payer BC ==
[2019-04-10 21:18] VITALS: BP 105/64
--- NOTE | 2019-04-10 21:38 | UC ---
Respiratory Complaint HPI - HPI Summary HPI Summary: 53-year-old male comes in with chief complaint of about 5 days of a surgical tract infection symptoms. He is a smoker. He does have some rhinorrhea. Gumaro cough chest congestion and wheezing. Is worse when he lays down at night. He use an albuterol inhaler in the past when he's been ill but he does not have one now. Sputum and rhinorrhea are yellow. - History of Current Complaint Chief Complaint: UCRespiratory Stated Complaint: URI Time Seen by Provider: 04/10/19 21:29 Pain Intensity: 5 - Allergies/Home Medications Allergies/Adverse Reactions: Allergies Allergy/AdvReac Type Severity Reaction Status Date / Time bee venom protein (honey bee) Allergy Severe Swelling Verified 04/10/19 21:20 Home Medications: Home Medications Quetiapine Fumarate [Seroquel 50 mg tab] 1 tab PO BEDTIME 04/10/19 [History Confirmed 04/10/19] PMH/Surg Hx/FS Hx/Imm Hx Previously Healthy: Yes - PULMONARY NODULES,FOLLOWED AT [facility] CT SCHEDULED Respiratory History: Asthma - Surgical History Surgical History: Yes Surgery Procedure, Year, and Place: hernia repair x 2, varicose repair, left knee replacement, gall bladder removal, gastric ablation. - Family History Known Family History: Positive: Cardiac Disease, Hypertension, Diabetes - Social History Alcohol Use: Occasionally Substance Use Type: None Smoking Status (MU): Heavy Every Day Tobacco Smoker Type: Cigarettes Amount Used/How Often: 1/2 PPD Have You Smoked in the Last Year: Yes Household Exposure Type: Cigarettes - Immunization History Most Recent Tetanus Shot: states less than 5 years Review of Systems All Other Systems Reviewed And Are Negative: Yes Constitutional: Positive: Other - SEE HPI Skin: Positive: Negative Eyes: Positive: Negative ENT: Positive: Sore Throat, Nasal Discharge, Sinus Congestion, Sinus Pain/ Tenderness Respiratory: Positive: Shortness Of Breath, Cough, Other - SEE HPI Cardiovascular: Positive: Negative Gastrointestinal: Positive: Negative Motor: Positive: Negative Neurovascular: Positive: Negative Musculoskeletal: Positive: Negative Neurological: Positive: Negative Psychological: Positive: Negative Is Patient Immunocompromised?: No Physical Exam Triage Information Reviewed: Yes Appearance: No Pain Distress, Well-Nourished, Ill-Appearing - MILD Vital Signs: Initial Vital Signs Temp 99 F 04/10/19 21:11 Pulse 78 04/10/19 21:11 Resp 17 04/10/19 21:11 BP 105/64 04/10/19 21:11 Pulse Ox 98 04/10/19 21:11 Vital Signs Reviewed: Yes Eye Exam: Normal Eyes: Positive: Conjunctiva Clear ENT: Positive: Pharyngeal erythema, Nasal congestion, Nasal drainage, TMs normal Neck: Positive: Supple Respiratory: Positive: No respiratory distress, Wheezing - RARE Cardiovascular: Positive: RRR Musculoskeletal: Positive: Strength Intact, ROM Intact Neurological: Positive: Alert, Muscle Tone Normal Psychological: Positive: Age Appropriate Behavior Skin Exam: Normal Respiratory Course/Dx - Course Course Of Treatment: DISCUSSED VIRAL VERSES BACTERIAL INFECTIONS AND THE ROLE OF ANTIBIOTICS. THE PATIENT PREFERS TO BE ON ANTIBIOTICS AT THIS TIME. - Differential Dx/Diagnosis Provider Diagnosis: Bronchitis with bronchospasm Discharge ED - Sign-Out/Discharge Documenting (check all that apply): Patient Departure All imaging exams completed and their final reports reviewed: No Studies - Discharge Plan Condition: Stable Disposition: HOME Prescriptions: DOXYcycline CAP(*) [DOXYcycline 100MG CAP(*)] 100 mg PO BID #18 cap Patient Education Materials: Acute Bronchitis (ED), Bronchospasm (ED) Referrals: Waqar Mcintyre MD [Primary Care Provider] - Additional Instructions: FOLLOW UP WITH YOUR DOCTOR IF NOT COMPLETELY IMPROVED. GET REEVALUATED SOONER IF NOT IMPROVED OR WORSE OR ANY QUESTIONS OR CONCERNS. - Billing Disposition and Condition Condition: STABLE Disposition: Home
[2019-04-10] MEDS ORDERED: DOXYcycline CAP(*) 100 MG PO ONE ×2 (21:39→21:40)
[2019-04-10] MEDS ORDERED: Albuterol HFA INHALER* 8 gm MDI INH ONE (21:39)
== END 2019-04-10 22:04 | disposition home or self-care (01) ==
LOC: UCEAST 21:02
DX: J40 Bronchitis, not specified as acute or chronic (principal); J98.01 Acute bronchospasm; F17.210 Nicotine dependence, cigarettes, uncomplicated; Z91.030 Bee allergy status
CPT/HCPCS: 99213; A9270-GY; G0463